=== PATIENT | male | born 1960 | race Caucasian/White ===

== ENCOUNTER → 2016-06-11 | Outpatient (CLI) | payer OTHER ==
[2016-06-11 12:46] LABS: BASOPHILS # (AUTO) 0.01 10*3/UL; BASOPHILS % (AUTO) 0.3 % (0-1); EOSINOPHILS % (AUTO) 1.9 % (0-8); HEMATOCRIT 35.1 % (42.0-52.0); HEMOGLOBIN 12.4 g/dL (14.0-18.0); IMM GRAN % (AUTO) 0.3 % (0-5); IMM GRAN# (AUTO) 0.01 10*3/UL; LYMPHOCYTES # (AUTO) 1.56 10*3/uL; LYMPHOCYTES % (AUTO) 42.4 % (10-50); MEAN CORPUSCULAR HEMOGLOBIN 31.4 PG (27-31); MEAN CORPUSCULAR HGB CONC 35.3 g/dL (33-37); MEAN PLATELET VOLUME 10.2 FL (7.4-12.2); MONOCYTES # (AUTO) 0.36 10*3/UL (0.3-0.8); MONOCYTES % (AUTO) 9.8 % (5-15); NEUTROPHILS # (AUTO) 1.67 10*3/UL; NEUTROPHILS % (AUTO) 45.3 % (50-80); RDW COEFFICIENT OF VARIATION 12.7 % (11.5-14.5); RED BLOOD COUNT 3.95 10^6/uL (4.70-6.10); WHITE BLOOD COUNT 3.68 10^3/uL (4.8-10.8)
[2016-06-11 12:48] LABS: PLATELET MORPHOLOGY COMMENT NORMAL MORPHOLOGY (NORM)
[2016-06-11 13:14] LABS: AMYLASE 77 U/L (30-110); ASPARTATE AMINO TRANSFERASE 25 IU/L (21-57); BILIRUBIN,TOTAL 0.6 mg/dL (0.3-1.2); BLOOD UREA NITROGEN 15 mg/dL (7-22); BUN/CREATININE RATIO 13.63 (6-20); CALCIUM 9.5 mg/dL (8.7-10.7); CHLORIDE 105 meq/L (98-112); CREATININE 1.1 mg/dL (0.70-1.50); EST GLOMERULAR FILTRATION > 60 (>60 ml/min/1.73m(2)); GLUCOSE 93 mg/dL (78-110); HDL CHOLESTEROL 63 mg/dL (40-150); POTASSIUM 4.4 meq/L (3.8-5.2); SODIUM 141 meq/L (135-145); TRIGLYCERIDES 52 mg/dL (44-200)
[2016-06-12 15:20] LABS: HCV AB SCREEN Negative (Negative)
== END ==
LOC: MOB LAB 11:36
PROVIDERS: ATTEND Nurse Practitioner Family
DX: Z00.00 Encounter for general adult medical examination without abnormal findings (principal); R10.84 Generalized abdominal pain; R53.83 Other fatigue
CPT/HCPCS: 36415; 80053; 80061; 82150; 83690; 84403; 85025; 86803

== ENCOUNTER → 2016-06-17 | Outpatient (CLI) | payer OTHER ==
[2016-06-17 11:28] LABS: RETIC COUNT 0.055 10(6)/uL (0.0380-0.1130); RETICULOCYTE PERCENT 1.23 % (0.77-2.36)
[2016-06-18 14:40] LABS: A/G RATIO 1.02 (()); ALB PEP SER 3.8 g/dL (3.4-4.7); ALP1 GLOB 0.2 g/dL (0.1-0.3); ALP2 GLOB 1.1 g/dL (0.6-1.0); GAMMA GLOBS 1.4 g/dL (0.6-1.6); TOT PRT SERUM 7.6 g/dL (6.3 - 7.9)
[2016-06-18 17:52] LABS: IMPRESSION SEE COMMENTS (())
== END ==
LOC: LAB 11:12
PROVIDERS: ATTEND Nurse Practitioner Family
DX: D64.9 Anemia, unspecified (principal); F17.210 Nicotine dependence, cigarettes, uncomplicated
CPT/HCPCS: 36415; 82668; 82728; 83010; 83540; 83550; 84155; 84165; 84466; 85045